=== PATIENT | male | born 1980 | race Caucasian/White ===

== ENCOUNTER 2020-08-30 20:51 | Emergency (ER) | payer OTHER ==
--- NOTE | 2020-08-30 21:07 | PHYS DOC ---
Adult General Chief Complaint Chief Complaint: TESTICULAR PAIN OR INJURY [facility] HPI Patient is a 40-year-old male, otherwise healthy presents with right testicle pain. States that about 530 he sat down at the dinner table in the chair and sat on his right testicle. States that since then he has had pain in the area, 7 out of 10, dull and achy in nature. States it is making him a little nauseous but had not thrown up. Denies any other injuries. Review of Systems Review of Systems Review of systems otherwise unremarkable except noted in HPI Physical Exam Physical Exam Constitutional: Well developed, well nourished, no acute distress, non-toxic appearance. [] Cardiovascular:Heart rate regular rhythm, no murmur [] Lungs & Thorax: Bilateral breath sounds clear to auscultation [] Abdomen: Bowel sounds normal, soft, no tenderness, no masses, no pulsatile masses. : Penis circumcised, normal with no injury. Left testicle with normal lie and no tenderness. Right testicle with normal lie, mild swelling and generalized tenderness on palpation [] Extremities: No tenderness, no cyanosis, no clubbing, ROM intact, no edema. [] Neurologic: Alert and oriented X 3, normal motor function, normal sensory function, no focal deficits noted. [] Psychologic: Affect normal, judgement normal, mood normal. [] EKG EKG [] Radiology/Procedures Radiology/Procedures []FINDINGS: Grayscale and Doppler analysis of the scrotum and contents was performed. The right testicle measures 4.8 x 2.9 x 2.8 cm. The parenchyma is homogeneous without focal lesions. The right epididymis is enlarged and somewhat hyperemic. Internal flow is normal. There is a small hydrocele. The left testicle measures 4.8 x 3.2 x 2.6 cm. The parenchyma is homogeneous without focal lesions. The epididymis appears normal. Internal flow is normal. There is no hydrocele. There is a small left varicocele. IMPRESSION: 1. Enlarged, hyperemic right epididymis. Correlate for epididymitis. 2. Small left varicocele. Electronically signed by: Tod King MD (08/30/2020 11:39 PM) [facility] Heart Score Risk Factors: Risk Factors: DM, Current or recent (<one month) smoker, HTN, HLP, family history of CAD, obesity. Risk Scores: Risk Factors: DM, Current or recent (<one month) smoker, HTN, HLP, family history of CAD, obesity. Course & Med Decision Making Course & Med Decision Making Patient is a 40-year-old male who presents with right testicle pain Vital signs not concerning. Physical exam noted above. Given oral pain medication. Testicular ultrasound notable for right-sided epididymitis. Discussed all findings with family and started on antibiotics in the ED. Discussed history of sexually transmitted infections, and family stated that they are monogamous and are not worried about that. Advised to follow-up with primary care physician first thing tomorrow to discuss ED visit and set up a follow-up. Gave strict return precautions to the ED. Family grateful, verbalized understanding and agreed with plan of discharge. [] Dragon Disclaimer Dragon Disclaimer This electronic medical record was generated, in whole or in part, using a voice recognition dictation system. Departure Departure: Impression: Primary Impression: Epididymitis Disposition: 01 DC HOME SELF CARE/HOMELESS Condition: GOOD Referrals: NAHID TRIPP MD (PCP) Patient Instructions: Epididymitis Additional Instructions: Please read all the attached information. Please take your antibiotics as prescribed please call your primary care physician first thing in the morning to discuss your ED diagnosis and medications. Please come back to the ED with new or concerning symptoms. Scripts Levofloxacin (LEVOFLOXACIN) 500 Mg Tablet 1 TAB PO DAILY for epididimitis for 10 Days, #10 TAB 0 Refills Prov: NIALL GARCIA MD 08/30/20 NIALL GARCIA MD Aug 30, 2020 21:07
[2020-08-30] MEDS ORDERED: oxyCODONE/APAP 5/325 1 TAB TABLET PO ONE (22:30)
--- NOTE | 2020-08-30 23:41 | RAD ---
EXAM: SCROTAL SONOGRAM WITH DOPPLER. HISTORY: Right testicular pain. COMPARISON: None. FINDINGS: Grayscale and Doppler analysis of the scrotum and contents was performed. The right testicle measures 4.8 x 2.9 x 2.8 cm. The parenchyma is homogeneous without focal lesions. The right epididymis is enlarged and somewhat hyperemic. Internal flow is normal. There is a small hy drocele. The left testicle measures 4.8 x 3.2 x 2.6 cm. The parenchyma is homogeneous without focal lesions. T he epididymis appears normal. Internal flow is normal. There is no hydrocele. There is a small left v aricocele. IMPRESSION: 1. Enlarged, hyperemic right epididymis. Correlate for epididymitis. 2. Small left varicocele. Electronically signed by: Tod King MD (08/30/2020 11:39 PM) [facility]
[2020-08-30] MEDS ORDERED: LEVO500T8 PO (23:51)
[2020-08-31] MEDS ORDERED: levoFLOXacin 500 MG TABLET PO ONE (00:30)
== END 2020-08-31 | disposition home or self-care (01) ==
LOC: ER 20:51
DX: N45.1 Epididymitis (principal)
CPT/HCPCS: 76870; 99284

== ENCOUNTER 2020-08-31 03:53 | Emergency (ER) | payer OTHER ==
[~2020-08-31] VITALS: Ht 172.7 cm; Wt 75.0 kg
[~2020-08-31 03:53] MED LIST: LEVO500T8 PO
[2020-08-31 04:24] LABS: BASO % 1 % (0-3); EOS % 1 % (0-3); HEMATOCRIT 40.4 % (39.0-53.0); HEMOGLOBIN 13.7 g/dL (13.0-17.5); LYMPH % 54 % (24-48); MEAN CORPUSCULAR HEMOGLOBIN 33 pg (25-35); MEAN CORPUSCULAR HGB CONC 34 g/dL (31-37); MEAN CORPUSCULAR VOLUME 98 fL (79-100); MONO # 0.2 x10^3/uL (0.0-1.1); MONO % 2 % (0-9); NEUT # 3.2 x10^3uL (1.8-7.7); NEUT % 43 % (31-73); PLATELET COUNT 177 x10^3/uL (140-400); RED BLOOD COUNT 4.13 x10^6/uL (4.30-5.70); RED CELL DISTRIBUTION WIDTH 15.3 % (11.5-14.5); WHITE BLOOD COUNT 7.4 x10^3/uL (4.0-11.0)
--- NOTE | 2020-08-31 04:24 | PHYS DOC ---
Past History Past Medical History: GERD, Other Additional Past Medical Histor: idiopathic allergy reactions,epididimytis Past Surgical History: No Surgical History Alcohol Use: None Adult General Chief Complaint Chief Complaint: ALLERGIC REACTION HPI HPI Patient is a 40-year-old male who presents to the emergency department with an aphylaxis. 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 Patient was in the emergency department earlier in the evening and was diagnosed with epididymitis given Percocet and started on Levaquin. That was about 5 or 6 hours before coming to the ED. States about a half an hour ago he woke up with a racing heart, swollen lips, swollen tongue and change in his phonation and difficulty swallowing. States he gave himself an EpiPen shot in the thigh at home. States when EMS got there he got a second dose of epinephrine. States that currently he feels that his lips and tongue are smaller and he is breathing easier. Still states that his voice is different and feels that his throat is full. States that when he woke up he did have some itching that is now resolved. Review of Systems Review of Systems Review of systems otherwise unremarkable except noted in HPI Current Medications Current Medications Current Medications Medications (Trade) Dose Ordered Sig/Janina Start Time Stop Time Status Last Admin Dose Admin Dexamethasone Sodium Phosphate (Decadron) 10 mg 1X ONCE 08/31/20 04:15 08/31/20 04:16 UNV Diphenhydramine HCl (Benadryl) 50 mg 1X ONCE 08/31/20 04:15 08/31/20 04:16 UNV Famotidine (Pepcid Vial) 20 mg 1X ONCE 08/31/20 04:15 08/31/20 04:16 UNV Allergies Allergies Allergies Coded Allergies Type Severity Reaction Last Updated Verified No Known Drug Allergies 08/30/20 No Physical Exam Physical Exam Constitutional: Well developed, well nourished, no acute distress, non-toxic appearance. [] HENT: Patient with hoarse voice and change in phonation. Patient's posterior oropharynx appears slightly edematous but not erythematous. Lips and tongue appear normal. Eyes: PERRLA, EOMI, conjunctiva normal, no discharge. [] Neck: Normal range of motion, no tenderness, supple, no stridor. [] Cardiovascular: Tachycardia Lungs & Thorax: Bilateral breath sounds clear to auscultation [] Abdomen: Bowel sounds normal, soft, no tenderness, no masses, no pulsatile masses. [] Skin: Warm, dry, no erythema, no rash. [] Extremities: No tenderness, no cyanosis, no clubbing, ROM intact, no edema. [] Neurologic: Alert and oriented X 3, normal motor function, normal sensory function, no focal deficits noted. [] Psychologic: Affect normal, judgement normal, mood normal. [] EKG EKG [] Radiology/Procedures Radiology/Procedures [] Heart Score Risk Factors: Risk Factors: DM, Current or recent (<one month) smoker, HTN, HLP, family history of CAD, obesity. Risk Scores: Risk Factors: DM, Current or recent (<one month) smoker, HTN, HLP, family history of CAD, obesity. Course & Med Decision Making Course & Med Decision Making Patient is a 40-year-old male who presents with anaphylaxis Vital signs notable for tachycardia initially. Physical exam noted above. Patient gave himself an EpiPen shot at home and got another 0.3 mg in route via EMS. In the emergency department patient states that he is doing better but still feels that his throat is full and his voice has changed. Given patient's baseline diagnosis of idiopathic allergic reactions, his anap hylaxis and concern for airway compromise discussed with patient that it would be appropriate to be admitted to the hospital, to the ICU and be observed as if his airway ended up becoming compromised it could be addressed immediately. Patient very grateful, verbalized understanding and agreed with plan of admission and transfer. [] Dragon Disclaimer Dragon Disclaimer This electronic medical record was generated, in whole or in part, using a voice recognition dictation system. Departure Departure: Impression: Primary Impression: Anaphylaxis Disposition: 02 DC/TRF OTHER SHORT TERM HOS Admitting Physician: Maggi Chapman Condition: STABLE Referrals: NAHID TRIPP MD (PCP) NIALL GARCIA MD Aug 31, 2020 04:24
[2020-08-31] MEDS ORDERED: DEXAMETHASONE SOD PHOS 10 MG/ML VIAL. IV ONE (04:30)
[2020-08-31] MEDS ORDERED: diphenhydrAMINE 50 MG/ML VIAL IVP ONE (04:30)
[2020-08-31] MEDS ORDERED: FAMOTIDINE 20 MG/2 ML VIAL IVP ONE (04:30)
[2020-08-31 04:33] LABS: CALCIUM 9.1 mg/dL (8.5-10.1); CREATININE 1.3 mg/dL (0.7-1.3); GFR 61.5; POTASSIUM 3.3 mmol/L (3.5-5.1)
[2020-08-31 04:35] VITALS: BP 129/45
[2020-08-31 05:25] LABS: ANISOCYTOSIS SLIGHT; MICROCYTOSIS SLIGHT; PLT ESTIMATE ADEQUATE (ADEQUATE)
== END 2020-08-31 04:45 | disposition short-term general hospital (02) ==
LOC: ER 03:53
DX: T78.2XXA Anaphylactic shock, unspecified, initial encounter (principal); K21.9 Gastro-esophageal reflux disease without esophagitis
CPT/HCPCS: 36415; 80048; 85025; 96374; 96375; 99285; J1100; J1200; J3490

== ENCOUNTER 2020-12-09 10:56 | Emergency (ER) | payer OTHER ==
[~2020-12-09] VITALS: Ht 172.7 cm; Wt 77.0 kg
--- NOTE | 2020-12-09 11:04 | PHYS DOC ---
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 He has history of idiopathic allergic reactions. He has had comprehensive work-up in outpatient setting with allergy clinic at [facility] for this, no definitive diagnosis obtained. Has history of allergic reaction with no known allergen/exposure/occupational hazard. Reports history of allergic reactions that cause skin changes, tongue swelling and difficulty breathing. He has an EpiPen, his required use of this numerous times in the past and has been hospitalized due to recurrent uses of EpiPen in the past but is never been intubated, no true anaphylaxis suffered. 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 EMS was subsequently called for transfer to our facility. On arrival, he is nauseous and has a headache which she reports is typical after receiving EpiPen Review of Systems Review of Systems Fourteen body systems of review of systems have been reviewed. See HPI for pertinent positives and negative responses, other [place] all other systems are negative, non-pertinent or non-contributory Allergies Allergies Allergies Coded Allergies Type Severity Reaction Last Updated Verified levofloxacin Allergy Severe 08/31/20 Yes Physical Exam Physical Exam Constitutional: Well developed, well nourished, no acute distress, non-toxic appearance. HENT: Normocephalic, atraumatic, bilateral external ears normal, oropharynx moist, airway patent and tolerating secretions with no phonation changes, no oral exudates, nose normal. Eyes: PERRLA, EOMI, conjunctiva normal, no discharge. Neck: Normal range of motion, no tenderness, supple, no stridor. Cardiovascular: Heart rate regular, sinus rhythm, no murmurs rubs or gallops Lungs & Thorax: Bilateral breath sounds clear to auscultation Abdomen: Bowel sounds normal, soft, no tenderness, no masses, no pulsatile masses. Nonsurgical abdomen, no peritoneal signs Skin: Warm, dry, no erythema, no rash. Back: No tenderness, no CVA tenderness. Extremities: No tenderness, no cyanosis, no clubbing, ROM intact, no edema. Neurologic: Alert and oriented X 3, cranial nerves II through XII intact, normal motor & sensory function, no focal deficits noted. Psychologic: Affect normal, judgement normal, mood normal. Current Patient Data Vital Signs Vital Signs Date Time Temp Pulse Resp B/P (MAP) Pulse Ox O2 Delivery O2 Flow Rate FiO2 12/09/20 11:00 97.9 98 20 142/76 (98) 95 Room Air Vital Signs Date Time Temp Pulse Resp B/P (MAP) Pulse Ox O2 Delivery O2 Flow Rate FiO2 12/09/20 11:00 97.9 98 20 142/76 (98) 95 Room Air Lab Results Laboratory Tests Test 12/09/20 11:28 White Blood Count 4.6 x10^3/uL Red Blood Count 3.98 x10^6/uL Hemoglobin 13.5 g/dL Hematocrit 38.2 % Mean Corpuscular Volume 96 fL Mean Corpuscular Hemoglobin 34 pg Mean Corpuscular Hemoglobin Concent 35 g/dL Red Cell Distribution Width 15.2 % Platelet Count 132 x10^3/uL Neutrophils (%) (Auto) 52 % Lymphocytes (%) (Auto) 45 % Monocytes (%) (Auto) 2 % Eosinophils (%) (Auto) 1 % Basophils (%) (Auto) 0 % Neutrophils # (Auto) 2.4 x10^3uL Lymphocytes # (Auto) 2.1 x10^3/uL Monocytes # (Auto) 0.1 x10^3/uL Eosinophils # (Auto) 0.0 x10^3/uL Basophils # (Auto) 0.0 x10^3/uL Platelet Estimate Decreased Platelet Clumps, EDTA Anisocytosis Slight Microcytosis Present Sodium Level 139 mmol/L Potassium Level 3.4 mmol/L Chloride Level 101 mmol/L Carbon Dioxide Level 27 mmol/L Anion Gap 11 Blood Urea Nitrogen 19 mg/dL Creatinine 1.2 mg/dL Estimated GFR (Cockcroft-Gault) 67.4 BUN/Creatinine Ratio 16 Glucose Level 187 mg/dL Calcium Level 9.1 mg/dL Total Bilirubin 0.4 mg/dL Aspartate Amino Transf (AST/SGOT) 30 U/L Alanine Aminotransferase (ALT/SGPT) 84 U/L Alkaline Phosphatase 62 U/L Troponin I Quantitative < 0.017 ng/mL Total Protein 7.2 g/dL Albumin 3.9 g/dL Albumin/Globulin Ratio 1.2 Current Medications Medications (Trade) Dose Ordered Sig/Janina Route PRN Reason Start Time Stop Time Status Last Admin Dose Admin Diphenhydramine HCl (Benadryl) 50 mg 1X ONCE IVP 12/09/20 11:15 12/09/20 11:21 DC 12/09/20 11:32 Famotidine (Pepcid Vial) 20 mg 1X ONCE IVP 12/09/20 11:15 12/09/20 11:21 DC 12/09/20 11:34 Methylprednisolone Sodium Succinate (SOLU-Medrol 125MG VIAL) 125 mg 1X ONCE IV 12/09/20 11:15 12/09/20 11:21 DC 12/09/20 11:40 Prochlorperazine Edisylate (Compazine) 10 mg 1X ONCE IV 12/09/20 11:15 12/09/20 11:21 DC 12/09/20 11:38 Ketorolac Tromethamine (Toradol 15mg Vial) 15 mg 1X ONCE IVP 12/09/20 11:15 12/09/20 11:21 DC 12/09/20 11:36 Sodium Chloride 1,000 ml @ 1,000 mls/hr 1X ONCE IV 12/09/20 11:15 12/09/20 12:14 DC 12/09/20 11:30 EKG EKG EKG ordered and interpreted by myself at 1125 hrs. sinus rhythm at 96 bpm, unremarkable intervals, no axis deviation, no STEMI Radiology/Procedures Radiology/Procedures [] Heart Score C/O Chest Pain: No HEART Score for Chest Pain: HEART Score for Chest Pain Response (Comments) Value History Slighlty/Non-Suspicious 0 ECG Normal 0 Age < 45 0 Risk Factors No Risk Factors 0 Troponin < Normal Limit 0 Total 0 Risk Factors: Risk Factors: DM, Current or recent (<one month) smoker, HTN, HLP, family history of CAD, obesity. Risk Scores: Risk Factors: DM, Current or recent (<one month) smoker, HTN, HLP, family history of CAD, obesity. Course & Med Decision Making Course & Med Decision Making Discussed with the patient all findings and diagnostic testing. I discussed most likely diagnosis of idiopathic allergic reaction consistent with prior episodes and sequelae symptoms. Patient responded to ER intervention provided and was asymptomatic and feeling "much better. Given history, I recommended admission for continued observation; however, patient and deferred admission and wanted to be discharged home. 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 Patient monitored for over 2 hours in ER, I again recommended need for admission but they continue to defer and wanted discharge home. As such, I stressed need for close outpatient follow-up to review today's ER visit. Strict return precautions were also discussed at length with good understanding by patient. Patient voiced understanding and agreement with the plan. Patient knows to come back for repeat evaluation if concerning signs or symptoms present prior to outpatient follow- up. Hemodynamically stable, ambulatory and well-appearing at time of disposition. Dragon Disclaimer Dragon Disclaimer This electronic medical record was generated, in whole or in part, using a voice recognition dictation system. Departure Departure: Impression: Primary Impression: Allergic reaction Disposition: HOME / SELF CARE / HOMELESS Condition: IMPROVED Referrals: NAHID TRIPP MD (PCP) Additional Instructions: You were seen for an allergic reaction. Your symptoms improved after self administration of EpiPen, and subsequent administration of IV steroids, fluids, Benadryl, nausea medication, and Pepcid. You need to follow up in the allergy or medicine clinic for further evaluation. It is unclear what caused your reaction. If you start to have shortness of breath, facial swelling, tongue swelling, difficulty swallowing, or any other concerning symptoms you should take your epipen and call 911 to return to the ED. it was a pleasure to take care of you and I wish you the best going for JOE MA DO Dec 09, 2020 11:04
[2020-12-09] MEDS ORDERED: diphenhydrAMINE 50 MG/ML VIAL IVP ONE (11:15)
[2020-12-09] MEDS ORDERED: FAMOTIDINE 20 MG/2 ML VIAL IVP ONE (11:15)
[2020-12-09] MEDS ORDERED: KETOROLAC 15 MG/ML VIAL. IVP ONE (11:15)
[2020-12-09] MEDS ORDERED: methylPREDNISolone SOD SUCC PF 125 MG/2 ML VIAL. IV ONE (11:15)
[2020-12-09] MEDS ORDERED: PROCHLORPERAZINE 10 MG/2 ML VIAL. IV ONE (11:15)
[2020-12-09] MEDS ORDERED: IV NORMAL SALINE 1,000ML 1,000 ML IV ONE (11:15)
--- NOTE | 2020-12-09 11:24 | EKG ---
[address] [address] Test Date: 2020-12-09 Test Time: 11:17:48 Pat Name: ALL ZARAGOZA Department: Room: Gender: M Hooker Off: MARICHUY : 1980 Requested By: JOE MA Order Number: [id number] Reading MD: Measurements Intervals [place] Rate: 96 P: 62 RI: 166 QRS: 86 QRSD: 104 T: 8 QT: 346 QTc: 438 Interpretive Statements SINUS RHYTHM NORMAL ECG RI6.02 No previous ECG available for comparison
[2020-12-09 11:49] LABS: BASO % 0 % (0-3); EOS % 1 % (0-3); HEMATOCRIT 38.2 % (39.0-53.0); HEMOGLOBIN 13.5 g/dL (13.0-17.5); LYMPH # 2.1 x10^3/uL (1.0-4.8); LYMPH % 45 % (24-48); MEAN CORPUSCULAR HEMOGLOBIN 34 pg (25-35); MEAN CORPUSCULAR HGB CONC 35 g/dL (31-37); MEAN CORPUSCULAR VOLUME 96 fL (79-100); MONO # 0.1 x10^3/uL (0.0-1.1); MONO % 2 % (0-9); NEUT # 2.4 x10^3uL (1.8-7.7); NEUT % 52 % (31-73); PLATELET COUNT 132 x10^3/uL (140-400); RED BLOOD COUNT 3.98 x10^6/uL (4.30-5.70); RED CELL DISTRIBUTION WIDTH 15.2 % (11.5-14.5); WHITE BLOOD COUNT 4.6 x10^3/uL (4.0-11.0)
[2020-12-09 11:59] LABS: CALCIUM 9.1 mg/dL (8.5-10.1); CREATININE 1.2 mg/dL (0.7-1.3); GFR 67.4; POTASSIUM 3.4 mmol/L (3.5-5.1)
[2020-12-09 12:06] LABS: ALBUMIN 3.9 g/dL (3.4-5.0); ALBUMIN/GLOBULIN RATIO 1.2 (1.0-1.7); TOTAL BILIRUBIN 0.4 mg/dL (0.2-1.0); TOTAL PROTEIN 7.2 g/dL (6.4-8.2)
[2020-12-09 12:52] LABS: PLT ESTIMATE DECREASED (ADEQUATE)
[2020-12-09 13:00] VITALS: BP 112/59
[2020-12-09 13:06] LABS: ANISOCYTOSIS SLIGHT; MICROCYTOSIS PRESENT
== END 2020-12-09 13:15 | disposition home or self-care (01) ==
LOC: ER 10:56
DX: T78.40XA Allergy, unspecified, initial encounter (principal); K21.9 Gastro-esophageal reflux disease without esophagitis; X58.XXXA Exposure to other specified factors, initial encounter
CPT/HCPCS: 36415; 80053; 84484; 85025; 93005; 96361; 96374; 96375; 99285; J0780; J1200; J1885; J2930; J3490; J7030